=== PATIENT | male | born 1955 | race Caucasian/White ===

== ENCOUNTER 2017-02-02 19:19 | Emergency (ER) | payer BC ==
--- NOTE | 2017-02-02 20:51 | ER Document Report ---
ED Medical Screen (RME) - General Chief Complaint: Chest pain, neck pain, jaw Stated Complaint: CHEST PAIN,NECK PAIN,ARM PAIN Time Seen by Provider: 02/02/17 20:42 Notes: 61-year-old male patient comes emergency room complaining of pain to the right chest neck and jaw that started on Wednesday, got worse on Wednesday, and much worse today. He notes the chest area is tender to touch. General pain started after yawning and popping his TMJ. He wears a hearing aid in that ear. He recalls just over a week ago was trying to change his oral and had trouble getting the oral filter off. He did not have a to remove it and his reports he was jerking and twisting so hard he was shaking the truck trying to get a filter off. Brief exam shows the right pectoralis muscle and anterior chest wall be quite tender to palpate. I have greeted and performed a rapid initial assessment of this patient. A comprehensive ED assessment and evaluation of the patient, analysis of test results and completion of the medical decision making process will be conducted by additional ED providers. TRAVEL OUTSIDE OF THE [place] IN LAST 30 DAYS: No Past Medical History - Past Medical History Cardiac Medical History: Reports: Hx Atrial Fibrillation Renal/ Medical History: Denies: Hx Peritoneal Dialysis Past Surgical History: Reports: Hx Cardiac Surgery Physical Exam - Vital signs Vitals: Temp Pulse Resp BP Pulse Ox 98.7 F 61 17 133/79 H 96 02/02/17 20:04 02/02/17 20:04 02/02/17 20:04 02/02/17 20:04 02/02/17 20:04 Course - Vital Signs Vital signs: Temp Pulse Resp BP Pulse Ox 98.7 F 61 17 133/79 H 96 02/02/17 20:04 02/02/17 20:04 02/02/17 20:04 02/02/17 20:04 02/02/17 20:04
[2017-02-02 21:31] LABS: ABSOLUTE EOSINOPHILS # (AUTO) 0.1 10^3/uL (0.0-0.6); ABSOLUTE LYMPHOCYTES (AUTO) 2.1 10^3/uL (0.5-4.7); ABSOLUTE MONOCYTES (AUTO) 0.9 10^3/uL (0.1-1.4); ABSOLUTE NEUT (AUTO) 3.8 10^3/uL (1.7-8.2); BASOPHILS % (AUTO) 0.6 % (0-2); EOSINOPHILS % (AUTO) 1.8 % (0-6); HEMATOCRIT 43.9 % (37.9-51.0); HEMOGLOBIN 14.8 g/dL (13.5-17.0); HGB HCT DIFFERENCE 0.5; LYMPHOCYTES % (AUTO) 30.4 % (13-45); MEAN CORPUSCULAR HEMOGLOBIN 31.6 pg (27.0-33.4); MEAN CORPUSCULAR HGB CONC 33.8 g/dL (32.0-36.0); MEAN CORPUSCULAR VOLUME 94 fl (80-97); MONOCYTES % (AUTO) 13.5 % (3-13); RED BLOOD COUNT 4.69 10^6/uL (4.35-5.55); RED CELL DISTRIBUTION WIDTH 12.7 % (11.5-14.0); SEGMENTED NEUTROPHILS % (AUTO) 53.7 % (42-78)
[2017-02-02 21:43] LABS: ALANINE AMINOTRANSFERASE 71 U/L (21-72); ALKALINE PHOSPHATASE 81 U/L (38-126); ANION GAP 14 (5-19); ASPARTATE AMINO TRANSFERASE 37 U/L (17-59); BILIRUBIN,DIRECT 0.3 mg/dL (0.0-0.4); BILIRUBIN,TOTAL 0.6 mg/dL (0.2-1.3); BLOOD UREA NITROGEN 18 mg/dL (7-20); CALCIUM 9.1 mg/dL (8.4-10.2); CARBON DIOXIDE 30 mmol/L (22-30); CHLORIDE 100 mmol/L (98-107); CREATINE KINASE 62 U/L (55-170); CREATININE RESULT 0.92 mg/dL (0.52-1.25); GLUCOSE 91 mg/dL (75-110); SODIUM 143.6 mmol/L (137-145); TOTAL PROTEIN 6.8 g/dL (6.3-8.2)
[2017-02-02 21:55] LABS: CREATINE KINASE MB 0.56 ng/mL (<4.55)
[2017-02-02 21:56] LABS: TROPONIN I < 0.012 ng/mL
--- NOTE | 2017-02-02 23:07 | ER Document Report ---
ED General - General Chief Complaint: Chest pain, neck pain, jaw Stated Complaint: CHEST PAIN,NECK PAIN,ARM PAIN Time Seen by Provider: 02/02/17 20:42 Notes: Is a 61-year-old male who presents with complaint of chest pain. Patient says the pain is across the anterior chest. He says he first noticed the pain yesterday. This is the day after he has been working on his truck. He said he was trying to remove an oral filter and was having to twist and turn on it very hard and was shaking the truck back and forth. He says the pain is worse with movement. Patient of the chest. He does have a history of mitral valve repair. He does have a history of pacemaker. He does not have a history of coronary disease. He had a recent echocardiogram a few weeks ago to look at the mitral valve repair. He said this was normal. No recent fevers infections. No other complaints at this time. Some mild pain in the right jaw. He says the jaw pain is related to when he took a big yawn and felt a pop and click in his jaw. His jaws been sore since then. He does not feel the jaw pain is any relation to the chest pain. TRAVEL OUTSIDE OF THE [place] IN LAST 30 DAYS: No - Related Data Allergies/Adverse Reactions: No Known Drug Allergies Allergy (Verified 02/02/17 23:12) Past Medical History - Social History Smoking Status: Unknown if Ever Smoked Frequency of alcohol use: None Drug Abuse: None Family History: Reviewed & Not Pertinent - Past Medical History Cardiac Medical History: Reports: Hx Atrial Fibrillation Renal/ Medical History: Denies: Hx Peritoneal Dialysis Past Surgical History: Reports: Hx Cardiac Surgery Review of Systems - Review of Systems Notes: My Normal Review Basic REVIEW OF SYSTEMS: CONSTITUTIONAL : Denies fever, chills, or sweats. Denies recent illness. EENT: Denies eye, ear, throat, or mouth pain or symptoms. Denies nasal or sinus congestion. CARDIOVASCULAR: Some chest pain RESPIRATORY: Denies cough, cold, or chest congestion. Denies shortness of breath, difficulty breathing, or wheezing. GASTROINTESTINAL: Denies abdominal pain. Denies nausea, vomiting, or diarrhea. Denies constipation. Last BM: MUSCULOSKELETAL: Denies neck or back pain or joint pain or swelling. SKIN: Denies rash or skin lesions. NEUROLOGICAL: Denies altered mental status or loss of consciousness. Denies headache. Denies weakness or paralysis or loss of use of either side. Denies problems with gait or speech. Denies sensory or motor loss. ALL OTHER SYSTEMS REVIEWED AND NEGATIVE. Physical Exam - Vital signs Vitals: Temp Pulse Resp BP Pulse Ox 98.7 F 61 17 133/79 H 96 02/02/17 20:04 02/02/17 20:04 02/02/17 20:04 02/02/17 20:04 02/02/17 20:04 - Notes Notes: General Appearance: Well nourished, alert, cooperative, no acute distress, no obvious discomfort. Pain. Vitals: reviewed, See vital signs table. Head: no swelling or tenderness to the head Eyes: PERRL, EOMI, Conjuctiva clear Mouth: No decreasd moisture Chest wall: Pain over anterior chest which is easily reproducible palpation. Patient also has increased pain across the muscles of his chest when he uses his hands to do a push-up against my resistance. Patient says the pain reproduced with palpation and with movement on my exam is the same pain that he presents to the ER for. Neck: Supple, no neck tenderness Ears: Normal tympanic membranes bilaterally. No signs of infection. Lungs: No wheezing, No rales, No rhonci, No accessory muscle use, good air exchange bilaterally. Heart: Normal rate, Regular rythm, No murmur, no rub Abdomen: Normal BS, soft, No rigidity, No abdominal tenderness, No guarding, no rebound, no abdominal masses, no organomegaly Extremities: strength 5/5 in all extremities, good pulses in all extremities, no swelling or tenderness in the extremities, no edema. Skin: warm, dry, appropriate color, no rash Neuro: speech clear, oriented x 3, normal affect, responds appropriately to questions. Course - Vital Signs Vital signs: Temp Pulse Resp BP Pulse Ox 98.7 F 61 17 133/79 H 97 02/02/17 20:04 02/02/17 20:04 02/02/17 20:04 02/02/17 20:04 02/02/17 23:00 - Laboratory Result Diagrams: 02/02/17 21:19 02/02/17 21:19 Laboratory results interpreted by me: 02/02/17 21:19 Monocytes % 13.5 H - EKG Interpretation by Me Additional EKG results interpreted by me: 02/02/17 23:07 EKG is reviewed and interpreted by me. EKG shows normal sinus rhythm with rate of [address] segment elevation or depression. No ischemic T-wave inversions. PA interval, QRS duration, QTc intervals are within normal range. No old EKG available for comparison. - Transfer of Care Notes: 02/03/17 00:58 Patient EKG is negative. His troponin delta troponin are negative. I do not suspect coronary disease at this time. He is of older age however his pain is easily reproducible with palpation and movement and his pain started after straining to remove a oil filter off a truck. At this time I feel he is safe to be discharged home. He has a follow-up appointment with his doctor on Wednesday. Patient encouraged to return to ER immediately if he has worsening pain , change in location of pain, difficulty breathing, or feels unwell. Patient and his agree with plan and he will be discharged home. Dictation of this chart was performed using voice recognition software; therefore, there may be some unintended grammatical errors. Discharge - Discharge Clinical Impression: Chest wall pain Condition: Good Disposition: HOME, SELF-CARE Additional Instructions: Your workup of your chest pain does not show any evidence of strain or damage to your heart. Despite your normal workup you should not ignore your symptoms if they are worsening.Please return to the ER immediately if you have worsening pain, fevers, vomiting, difficulty breathing, or feel unwell. Please follow up closely with your primary care physician for reevaluation in 2 days. Referrals: OLIVIER KNUTSON MD [Primary Care Provider] - Follow up tomorrow
--- NOTE | 2017-02-02 23:30 | RADIOLOGY REPORT (SQ) ---
EXAM DESCRIPTION: CHEST SINGLE VIEW COMPLETED DATE/TIME: 02/02/2017 11:17 pm REASON FOR STUDY: chest pain COMPARISON: 01/22/2016 EXAM PARAMETERS: NUMBER OF VIEWS: One view. TECHNIQUE: Single frontal radiographic view of the chest acquired. RADIATION DOSE: NA LIMITATIONS: None. FINDINGS: LUNGS AND PLEURA: There is scarring in the apices. No consolidation or effusions. MEDIASTINUM AND HILAR STRUCTURES: No masses. Contour normal. HEART AND VASCULAR STRUCTURES: Heart normal in size. Normal vasculature. BONES: No acute findings. HARDWARE: Battery pack and leads remain in place. OTHER: No other significant finding. IMPRESSION: NO ACUTE RADIOGRAPHIC FINDING IN THE CHEST. TECHNICAL DOCUMENTATION: JOB ID: [id number]
[2017-02-02] MEDS ORDERED: KETOROLAC TROMETHAMINE INJ/PF 30 MG/1 ML SDV IM ONE (23:34)
[2017-02-03 01:24] VITALS: BP 132/86
--- NOTE | 2017-02-03 08:47 | EKG REPORT ---
SEVERITY:- ABNORMAL ECG - ATRIAL-PACED COMPLEXES BORDERLINE T ABNORMALITIES, INFERIOR LEADS : Confirmed by: Louise Flannery MD 03-Feb-2017 08:47:03
== END 2017-02-03 01:38 | disposition home or self-care (01) ==
LOC: ER 19:19
DX: R07.89 Other chest pain (principal); R68.84 Jaw pain; I48.91 Unspecified atrial fibrillation; Z95.0 Presence of cardiac pacemaker; Z98.890 Other specified postprocedural states
CPT/HCPCS: 93005; 99284; 96372; 36415; 82553; 82550; 85025; 80053; 84484; 71010; 93010; J1885